=== PATIENT | female | born 1980 | race Caucasian/White ===

== ENCOUNTER 2023-09-24 08:56 | Outpatient (CLI) | payer SELFPAY ==
[2023-09-24 09:12] VITALS: BP 136/74; PULSE 85; RESP 16; TEMP 36.5; O2SAT 96; BMI 34.3
[2023-09-24] MEDS: Iron Sucrose Complex 300 MG in 0.9% Normal Saline (250mL Bag) 250 ML 177 MG IV (09:26)
[2023-09-24] MEDS: 0.9% NaCl Peripheral Flush Adult/Peds IV (09:29)
[2023-09-24] MEDS: 0.9% NaCl IVPB Med Flush (250 mL) 15 ML IV (09:29)
[2023-09-24 11:39] VITALS: BP 140/78; PULSE 84; RESP 16; TEMP 36.4; O2SAT 100
== END 2023-09-24 08:57 | disposition home or self-care (01) ==
PROVIDERS: Referring Provider Nurse Practitioner Women's Health; Visit Provider Nurse Practitioner Women's Health
DX: D64.9 Anemia, unspecified (principal)
CPT/HCPCS: 96365; 96366; J1756; J7050; A4216

== ENCOUNTER 2023-10-01 08:40 | Outpatient (CLI) | payer SELFPAY ==
--- NOTE | 2023-10-01 | EMB_PTH ---
PATIENT: YOAV ACUNA LOC: [facility]#:[id number] AGE/SX: 43/F ROOM: RE10/01/[address]: MARILEE Deshpande : 1980 BED: DIS: 10/01/2023 SPEC #: [id number] RECD: 10/01/23 13:27 STATUS: MARIA E REMarkos #: [id number] MAIRA: 10/01/23 00:[address]: Mónica Irby NP DEPT: SURGICAL PATHOLOGY RECD BY: Lester Morrison ENTERED: 10/01/23 13:27 SP TYPE: ENDOM BX/C MARK DR: Dr. Josette Wilson MD No Primary Care Phys Tissues: Endometrium, NOS Procedures: Surgery Specimen Level IV HEADER OPERATION: Endometrial bleeding PRE-OP DIAGNOSIS: Uterine fibroids TISSUE SUBMITTED: Endometrial lining MICROSCOPIC DIAGNOSIS Endometrium biopsy: Scant fragments of endometrial tissue with weakly proliferative endometrium. Focal eosinophilic and morular metaplasia. See comment. SJ/ 10/02/23 COMMENT The specimen predominantly consists of blood clots. Complex gland formation is noted in the area of eosinophilic and morular metaplasia. Clinical correlation and appropriate follow up are necessary. Repeat biopsy is suggested if clinically indicated. Case has been reviewed in consultation with Dr. Alejandre who concurs with the above diagnosis. IDC:AM MICROSCOPIC DESCRIPTION Slides are reviewed. GROSS DESCRIPTION Received is one container labeled with the patient's name and not further designated. The specimen consists of multiple irregular fragments of hemorrhagic soft tissue that in aggregate measure 5.0 x 3.0 x 0.6 cm. The specimen is totally submitted in two cassettes. [facility] 10/01/23 TC:5 CPT: 00962
[2023-10-01 09:00] VITALS: BP 131/88; PULSE 84; RESP 16; TEMP 36.5; O2SAT 98; BMI 34.7
[2023-10-01 09:11] LABS: Absolute Lymphocyte Count 1.94 X10^3/uL (0.83-4.51); Absolute Neutrophil Count 4.1 X10^3/uL (2.0-7.7); Basophil# 0.05 X10^3/uL; Basophil% 0.8 % (0-1); Eosinophil# 0.17 X10^3/uL; Eosinophils% 2.6 % (0-5); Hematocrit 25.4 % (37-47); Lymphocyte # 1.94 X10^3/ul (0.83-4.51); Lymphocyte % 29.3 % (19-41); Mean Corp Hgb Conc 31.5 g/dL (32-36); Mean Corpuscular Hgb 31.9 pg (27.0-32.0); Mean Corpuscular Volume 101.2 fL (81-99); Mean Platelet Vol. 8.8 fl (6.2-12.0); Monocyte# 0.34 X10^3/uL; Monocyte% 5.1 % (0-10); NRBC Flagged by Analyzer 0 % (0-5); Neutrophil % 61.7 % (47-70); Platelet Count 497 K/mm3 (150-450); RBC Distribution Width CV 16.3 % (11.6-14.6); Red Blood Count 2.51 M/mm3 (4.2-5.4); White Blood Count 6.6 K/mm3 (4.4-11.0)
[2023-10-01] MEDS: Iron Sucrose Complex 300 MG in 0.9% Normal Saline (250mL Bag) 250 ML 177 MG IV (09:21)
[2023-10-01] MEDS: 0.9% NaCl IVPB Med Flush (250 mL) 15 ML IV (09:21)
[2023-10-01 11:22] VITALS: BP 125/82; PULSE 85; RESP 16; TEMP 36.6; O2SAT 98
[2023-10-07 15:52] LABS: HPV Reflexed? NOT INDICATED
== END 2023-10-01 08:41 | disposition home or self-care (01) ==
PROVIDERS: Obstetrics & Gynecology; Referring Provider Nurse Practitioner Women's Health; Visit Provider Nurse Practitioner Women's Health
DX: D64.9 Anemia, unspecified (principal); D25.9 Leiomyoma of uterus, unspecified; N85.8 Other specified noninflammatory disorders of uterus; N93.9 Abnormal uterine and vaginal bleeding, unspecified; Z12.4 Encounter for screening for malignant neoplasm of cervix
CPT/HCPCS: 96365; 96366; 84443; 85025; 88175; 88305; J1756; J7050; A4216; G0145

== ENCOUNTER 2023-10-08 08:06 | Outpatient (CLI) | payer SELFPAY ==
[2023-10-08 08:25] VITALS: BP 150/84; PULSE 85; RESP 16; TEMP 36.3; O2SAT 100; BMI 34.0
[2023-10-08] MEDS: 0.9% NaCl IVPB Med Flush (250 mL) 15 ML IV (08:40)
[2023-10-08] MEDS: 0.9% NaCl Peripheral Flush Adult/Peds IV (08:40)
[2023-10-08] MEDS: Iron Sucrose Complex 300 MG in 0.9% Normal Saline (250mL Bag) 250 ML 177 MG IV (08:40)
[2023-10-08 10:33] VITALS: BP 122/72; PULSE 79
== END 2023-10-08 08:07 | disposition home or self-care (01) ==
PROVIDERS: Referring Provider Nurse Practitioner Women's Health; Visit Provider Nurse Practitioner Women's Health
DX: D64.9 Anemia, unspecified (principal)
CPT/HCPCS: 96365; 96366; J1756; J7050; A4216

== ENCOUNTER 2024-03-01 06:12 | Day surgery (SDC) | payer SELFPAY, OTHER ==
[2023-12-09 10:24] LABS: Absolute Lymphocyte Count 2.43 X10^3/uL (0.83-4.51); Absolute Neutrophil Count 3.5 X10^3/uL (2.0-7.7); Basophil# 0.06 X10^3/uL; Basophil% 0.9 % (0-1); Eosinophil# 0.23 X10^3/uL; Eosinophils% 3.4 % (0-5); Hematocrit 37.7 % (37-47); Hemoglobin 12.3 g/dL (12.0-15.0); Lymphocyte # 2.43 X10^3/ul (0.83-4.51); Lymphocyte % 36.1 % (19-41); Mean Corp Hgb Conc 32.6 g/dL (32-36); Mean Corpuscular Hgb 29.1 pg (27.0-32.0); Mean Corpuscular Volume 89.1 fL (81-99); Monocyte# 0.52 X10^3/uL; Monocyte% 7.7 % (0-10); NRBC Flagged by Analyzer 0 % (0-5); Neutrophil # 3.48 X10^3/uL (2.7-7.7); Neutrophil % 51.8 % (47-70); Platelet Count 376 K/mm3 (150-450); RBC Distribution Width SD 42.5 fl (35.1-43.9); Red Blood Count 4.23 M/mm3 (4.2-5.4); White Blood Count 6.7 K/mm3 (4.4-11.0)
[2024-02-12 09:47] LABS: International Normalized Ratio 1.1; Prothrombin Time (Protime)PT. 13.9 SECONDS (11.7-14.9)
[2024-02-12 09:48] LABS: Partial Thromboplast Time 28.1 Seconds (24.1-36.2)
[2024-02-12 09:59] LABS: Internal QC Validated? YES +Cl - CLEAR BKGD; Pregnancy, Urine Negative Negative
[2024-02-12 10:05] LABS: Magnesium 2.3 mg/dL (1.6-2.6)
--- NOTE | 2024-02-29 08:06 | PCM.HP.BLA ---
History and Physical Date of Admission: 02/29/24 [facility] [address] [place] [address] OFFICE VISIT Date of Service: 01/05/24 MR#: [id number] Acct: [id number] Name: YOAV ACUNA Rep #: [id number] : 1980 Provider: Dr. Josette Wilson MD Age/Sex: 43/F Location: [facility] Status: Signed Intake Vital Signs 10/08/2407:25 01/04/2411:13 01/04/2411:14 Height 5 ft 8 in 5 ft 8 in 5 ft 8 in Weight: 229 lb BMI 34.8 BP 161/101 H Intake Visit Reasons: [facility] Incident Response Engineer Required: No Is patient in pain?: No Allergies No Known Allergies Allergy (Verified 01/05/24 11:14) Medications ?Medication ?Instructions ?Recorded ?Confirmed ?Type megestrol 40 mg tablet 40 mg PO BID #60 tabs 09/24/23 01/05/24 Rx levothyroxine 25 mcg capsule 25 mcg PO DAILY 10/08/23 01/05/24 [facility] History (Updated 01/05/24 @ 11:[address] Josette Wilson MD) Hypothyroid Family History Mother HypertensionFather Hypertension Social History Smoking Status: Never smoker alcohol intake: never substance use type: does not use additional social history: - Heri [facility] Details: YOAV ACUNA is a 43 year old who presents [facility]op [facility] AUB fibroid and anemia. she has been treated for hypothyroidism. she had a normal bp yesterday in the office at her PCP and she will fu with PCP to ensure her bps are WNL. History 1 Elective abortions Hx Para 1 Spontaneous abortions Hx # Term Pregnancies Ectopic pregnancies Hx # Pregnancies Multiple births # of living children Past Pregnancies Del. Date Name GA/Weeks Outcome Route Bth Weight Infant Gen Labor Lgth Anesthesia Del Locatn Provider FOB Unknown Olive Segal Constitutional: Reports system reviewed and no additional complaints, except as documented; Denies chills, fever(s), weight gain or weight loss Cardio Card: Denies chest pain Resp Resp: Denies dyspnea GI GI: Reports as per HPI; Denies abdominal pain, bloating, constipation, cramping, nausea or vomiting : Reports as per HPI; Denies urinary frequency or urinary urgency Exam Const General: cooperative, healthy appearing, comfortable and well developed Orientation: alert HENNV Head: normal to inspection Ears: hearing grossly normal bilaterally and external ears normal Nose: external nose normal and nares normal Face and sinus: normal facial exam Neck Neck: normal visual inspection, no lymphadenopathy and trachea midline Thyroid: thyroid normal Resp Effort & Inspection: normal respiratory effort Auscultation: clear to auscultation bilaterally Cardio Rate: regular rate Rhythm: regular rhythm Heart Sounds: S1 normal and S2 normal GI Inspection: normal to inspection and non-distended Palpation: soft, no hepatosplenomegaly and no guarding External Female Exam: normal external appearance and normal appearance of the urethra Urethra: normal appearance of the urethra Speculum Exam - Vagina: normal appearance of the vagina, normal vaginal discharge and no lesions Speculum Exam - Cervix: normal appearance of the cervix and nontender Bimanual Exam- Vagina & Uterus: No tender Musc Other: gross motor intact no deficits, full bilateral strength Skin General: no rashes or lesions noted Neuro Motor: muscle tone normal throughout Coding Level of Care Code No Charge Diagnoses Hypothyroid E03.9 Uterine fibroid D25.9 Vaginal bleeding N93.9 Assessment and Plan Assessment and Plan (1) Hypothyroid: Status: Acute (2) Uterine fibroid: Status: Acute Comment: nl emb, on megace BID, getting IV iron infusions for anemia. plan lavh bs (3) Vaginal bleeding: Status: Acute Plan After discussing the patient's diagnosis and treatment plan options, patient wishes to proceed with surgical management. I have discussed with the patient the risks, benefits, and alternatives of the procedure which include but are not limited to risks of anesthesia, bleeding, infection, possible damage to bowel, bladder, or surrounding vasculature which could lead to additional surgery to evaluate any complications. Patient agrees to procedure and wishes to proceed. ACOG/uptodate references given for additional information regarding procedure.
[2024-03-01] VITALS (12 sets, daily range): BP systolic 91–167; BP diastolic 62–89; PULSE 67–97; RESP 16–20; TEMP 35.7–36.8; O2SAT 100; BMI 36.5
[2024-03-01] MEDS: Bupivacaine 0.25% 30 ML Vial (06:31)
[2024-03-01] MEDS: Lactated Ringers 1,000 ML 40 ML IV (06:55)
[2024-03-01] MEDS: Magnesium 1 GM over 15 mins IV (07:05)
--- NOTE | 2024-03-01 07:12 | PCM.OPRPT ---
Problems Associated Problem List Diagnoses (1) Uterine fibroid: (2) Hypothyroid: (3) Vaginal bleeding: (4) Acute blood loss anemia: Report of Operation Date of Procedure: 03/01/24 Pre-Operative Diagnosis: see A/P Post-Operative Diagnosis: same Surgery/Procedure Performed:: LAVHBS cystoscopy Description of Surgical Findings:: enlarged fibroid uterus 480 g limited mobility and visibility Surgeon: Josette Wilson Type of Anesthesia: General Specimen's removed: uterus, tubes Drains: mercado Estimated Blood Loss (mL): 200 Fluids Replaced: crystalloid Description of Procedure: Patient received preoperative antibiotics and SCDs were on preoperatively. Patient was taken back to the operating room and placed in the dorsal lithotomy position. General anesthesia was induced and patient was prepped and draped in normal sterile fashion. Uterine manipulator was placed inside the uterus and Mercado catheter placed in the bladder. The umbilicus was grasped with towel clamps and an intraumbilical incision was made after injecting with quarter percent Marcaine and a Veress needle entered into the abdomen confirmed to be intra-abdominal with a low opening pressure. Abdomen was insufflated with CO2 gas and the Veress needle removed and the 5 mm trocar was placed under direct visualization without complication. Right and left lower quadrants were transilluminated and injected with quarter percent Marcaine and 5 mm ports placed under direct visualization. Pelvis was well visualized see operative findings for additional information. Bilateral fallopian tubes were identified and transected with the LigaSure device across the mesosalpinx to the level of the utero-ovarian ligament which was also transected with the LigaSure device. The broad ligament was opened up by transecting the round ligament bilaterally and skeletonizing the uterine vessels bilaterally and creating a bladder flap using the LigaSure device. The uterine arteries were transected bilaterally with good visualization of the bladder and the ureters were seen to be inferior lateral to the operative area. Attention was then paid to the vaginal portion of the procedure and the cervix was grasped with Del clamps and circumferentially injected with dilute vasopressin. A circumferential incision was made and the vaginal mucosa was mobilized off posteriorly and the cul-de-sac entered into sharply and a longneck speculum placed. The anterior cul-de-sac was then identified and entered into sharply. The uterosacral ligaments were clamped cut and suture ligated with 0 Monocryl bilaterally followed by the cardinal ligaments which were clamped cut and suture ligated bilaterally with 0 Monocryl. The uterus serially descended and was removed without difficulty. Pelvic sidewall pedicles were checked and noted to have excellent hemostasis. The vaginal mucosa was reapproximated incorporating the posterior peritoneum. This was reapproximated using 0 Vicryl [id number] sutures. Excellent hemostasis was noted. attention paid to the abdominal portion of the procedure again. The pelvis and cul-de-sac were well visualized and no significant active bleeding noted. Pressure was taken down and the areas visualized and noted of excellent hemostasis. some cauterizaiton was noted moreso on the right pelvic side wall so decision was made to perfom a cystoscopy. The cystoscopy was then performed and bilateral ureteral strong spray was noted and the bladder was noted to have no abnormality or lesions seen. All ports were removed under direct visualization without complication and the abdomen was desufflated of air. The instruments were removed from the abdomen and the vaginal sweep was negative. Port sites on the abdomen were closed with 4-0 Monocryl interrupted sutures and Steri's and windows were applied. She was awoken and taken recovery in stable condition. Grafts/Implants Used: none Procedure Start Time: 09:16 Procedure Stop Time: 12:03 Complications none Admit VTE Documentation VTE Present on Admission: No VTE Mechan Device Prophylaxis: SCD's VTE Pharm Prophylaxis ordered?: Yes Multi Select Codes Urinary/Genital Urinary/Genital CPT Codes: 34496 Cystoscopy and 29595 LAVH+BS/O >250gr Uterus
--- NOTE | 2024-03-01 07:17 | PCM.DC ---
Discharge Instructions Diet Discharge Diet: No restrictions Activity May resume sexual activity in: 6 weeks Weight Bearing Status: Full weight bearing Dressing / Incision Call your doctor if your incision/area has: Continuous Slow Oozing, Sudden Increased Bleeding, Increased Pain/ Swelling, Increased Redness and Foul Smelling Discharge Call your doctor if you observe: Fever of 101 or Higher, Using more than 1 pad per hour, Shortness of breath, Chest pain and Uncontrolled pain Suture Line Care: Avoid Pulling/Pushing and Avoid Pinching/Bending Remove Dressing in: 1 week (if present) Cleanse incision/area with: Soap & Water and Keep Dressing Clean & Dry Follow Up Care Please Follow Up With: Josette Wilson MD When: Call to make an appointment with your doctor for a postop visit in 2 and 6 weeks. Test Results: Test results from this visit will be discussed in further detail at your follow-up appointment, if applicable. Discharge Plan Admission Attending Provider: Josette Wilson Primary Care Provider: Jeanine Bronson NP Instructions Print Language: Rwandan Discharge Orders/Prescriptions Prescriptions: New oxycodone-acetaminophen [Percocet] 5-325 mg tablet 1 tab PO Q6H PRN (Reason: pain) 7 Days Qty: 10 0RF naproxen 500 mg tablet 500 mg PO BID PRN PRN (Reason: Pain) Qty: 30 1RF No Action megestrol 40 mg tablet 40 mg PO BID Qty: 60 6RF levothyroxine 100 mcg tablet 112 mcg PO DAILY hydrochlorothiazide 25 mg tablet 25 mg PO DAILY Referrals / Follow Up: Jeanine Bronson NP, ENERGY CONSERVATION REPRESENTATIVE-C [Primary Care Provider] - Disposition Disposition (needs filled in before D/C Order can be placed): Home, Self Care
[2024-03-01] MEDS: dexAMETHasone 4 MG/ML Vial 8 MG IV (07:19)
[2024-03-01] MEDS: Enoxaparin 40 MG/0.4 ML Syringe SC (07:19)
[2024-03-01] MEDS: Scopolamine 1mg/72hr Patch 1 PATCH TD (07:19)
[2024-03-01] MEDS: Phenazopyridine 95 MG Tablet 190 MG PO (07:20)
[2024-03-01] MEDS: Celecoxib 200 MG Capsule 400 MG PO (07:21)
[2024-03-01] MEDS: Acetaminophen 500 MG Tablet 1000 MG PO (07:21)
[2024-03-01] MEDS: Gabapentin 600 MG Tablet PO (07:22)
[2024-03-01 07:44] LABS: Internal QC Validated? YES +Cl - CLEAR BKGD; Pregnancy, Serum, hCG Quali. NEGATIVE Negative
--- NOTE | 2024-03-01 07:51 | PRE.ANES_ITS ---
ASA Classification* ASA Classification ASA Classification: 2 Assessment & Plan Anesthesia* Anesthesia Assessment Anesthesia Assessment: Discussed sedation and/or anesthesia options, risks, benefits, and alternatives with patient/parents/legal guardian/POA. Questions invited. The patient/parents/legal guardian/POA seems to understand and agrees to proceed with anesthesia plan. Reviewed the physical assessment, medical history, allergy history and patient home medications list prior to surgery/procedure/anesthetic and documented any changes. Performed airway and anesthesia risk assessments. Anesthesia Type Anesthesia Type: General (see written pre anesthesia record for full assessment ) Anesthesia Focused Assessment* Temperature: 98.3 F Pulse Rate: 97 Blood Pressure: 167/84 Respiratory Rate: 18 Pulse Ox: 100 Airway Assessment Mouth opens: >3 cm Mallampati Score: II Focused Labs Anesthesia Preop lab: CBC WBC 6.7 K/mm3 (4.4-11.0) 12/09/23 08:57 RBC 4.23 M/mm3 (4.2-5.4) 12/09/23 08:57 Hgb 12.3 g/dL (12.0-15.0) 12/09/23 08:57 Hct 37.7 % (37-47) 12/09/23 08:57 Plt Count 376 K/mm3 (150-450) 12/09/23 08:57 CHEMISTRY Magnesium 2.3 mg/dL (1.6-2.6) 02/12/24 09:17 TSH 6.820 uIU/mL (0.358-3.740) H 02/12/24 09:17 COAG PT 13.9 SECONDS (11.7-14.9) 02/12/24 09:17 Urine Test Negative Negative 02/12/24 09:17 Pre-Assessment Diagnosis/Proposed Procedure Planned Operative Procedure(s): LAP ASSISTED VAGINAL HYSTERECTOMY BILAT SALPINGECTOMY Anesthesia History Anesthesia History - supervisor electronics testing: Anesthesia History - supervisor electronics testing Hx Hospitalization No 02/22/24 08:59 Any Problems With Anesthesia No 02/22/24 08:59 Cholinesterase deficiency No 02/22/24 08:59 You/Your Family Experience No 02/22/24 08:59 fever (hyperthermia) with Relationship Recent Exposure to Contagious No 03/01/24 06:45 Disease Does patient have nerve No 02/22/24 08:59 stimulator Patient instructed to have device shut off --Does patient have Pacemaker No 03/01/24 06:45 or ICD? When Was Last Pacemaker Check QUESTION #4 FULL TEXT: You/Your Family Experience fever (hyperthermia) with Anesthesia Last Oral Intake Last Oral intake: Last Oral Intake NPO since 04:30 03/01/24 06:45 Meds taken in AM with sips of Yes 03/01/24 06:45 water? Meds patient instructed to levothyroxine 03/01/24 06:45 take am of surgery PONV PONV - supervisor electronics testing: PONV - supervisor electronics testing Female Yes 02/22/24 08:59 HX of Motion Sickness No 02/22/24 08:59 HX of N/V After Surgery No 02/22/24 08:59 Non-Smoker Yes 02/22/24 08:59 Duration of Surgery greater Yes 02/22/24 08:59 than 60 minutes Number of Risk Factors 3 02/22/24 08:59 PONV Score Moderate Risk 02/22/24 08:59 Height & Weight Height & Weight: Anesthesia: Height & Weight Height 5 ft 7 in 03/01/24 06:45 Weight: 105.7 kg 03/01/24 06:45 Body Mass Index (BMI) 36.5 03/01/24 06:45 Respiratory Assessment Respiratory Assessment - supervisor electronics testing: Respiratory Tract Infection Hx - supervisor electronics testing Hx Respiratory Tract Infection No 02/22/24 08:59 STOP Sleep Apnea STOP Sleep Apnea - supervisor electronics testing: STOP Sleep Apnea - supervisor electronics testing Hx Hypertension Yes: JUST STARTED ON HCTZ 02/22/24 08:59 Hx Sleep Apnea No 02/22/24 08:59 CPAP BIPAP Do you snore loudly (louder Yes 02/22/24 08:59 than talking or can be heard Do you often feel tired/ No 02/22/24 08:59 fatigued/ sleepy during daytime? Has anyone observed you stop No 02/22/24 08:59 breathing during sleep? STOP Results Positive 02/22/24 08:59 QUESTION #5 FULL TEXT : Do you snore loudly (louder than talking or can be heard through closed doors)? Tobacco Use History Tobacco Use History - supervisor electronics testing: Tobacco Use History - supervisor electronics testing Tobacco Use Smoking Status Never smoker 02/22/24 08:59 Hx Tobacco Use No 02/22/24 08:59 Years Smoking Packs Smoked per Day Smoking Cessation Date was within the last 15 years Hx Smoking Cessation Date Hx Smoking Cessation Counseling Hematologic Medial History Hematologic Hx - supervisor electronics testing: Hematologic Medical Hx - senior qa engineer Hx of Blood Transfusion Yes 02/22/24 08:59 Hx of Transfusion in last 3 No 02/22/24 08:59 Months Date of Last Transfusion (if within last 3 months) Ever experience any problems No 02/22/24 08:59 with transfusion(s)? Specify any problems Hx of Preganancy in last 3 No 02/22/24 08:59 Months Nurse Filling Out Transfusion DSCHRIBER 02/22/24 08:59 & Questions: Date: 02/22/24 02/22/24 08:59 Time: 08:59 02/22/24 08:59 Patient unable to answer at this time (ie. confused, unrespo /Reproduction History /Reproductive History - supervisor electronics testing: /Reproductive Hx- supervisor electronics testing Hx Now No 02/22/24 08:59 Gestational Age (in weeks): EDC: Hx Hx Para Hx Section SAB No 02/22/24 08:59 Active Medications Active Medications: Current Medications Generic Name Dose Route Start Last Admin Trade Name Freq PRN Reason Stop Dose Admin Acetaminophen 1,000 mg 03/01/24 08:15 03/01/24 07:21 Acetaminophen 500 Mg Tablet PO 03/01/24 08:16 1,000 mg PREOP ONE Administration Celecoxib 400 mg 03/01/24 08:15 03/01/24 07:21 Celecoxib 200 Mg Capsule PO 03/01/24 08:16 400 mg X1 ONE Administration Dexamethasone Sodium Phosphate 8 mg 03/01/24 08:15 03/01/24 07:19 Dexamethasone 4 Mg/Ml Vial IV 03/01/24 08:16 8 mg X1 ONE Administration Enoxaparin Sodium 40 mg 03/01/24 08:15 03/01/24 07:19 Enoxaparin 40 Mg/0.4 Ml Syringe SC 03/01/24 08:16 40 mg X1 ONE Administration Gabapentin 600 mg 03/01/24 08:15 03/01/24 07:22 Gabapentin 600 Mg Tablet PO 03/01/24 08:16 600 mg PREOP ONE Administration Lactated Ringer's 1,000 mls @ 40 mls/hr 03/01/24 08:15 03/01/24 06:55 IV 40 mls/hr .Q25H JORDANA Administration Cefazolin Sodium 2 gm/ Sodium 110 mls @ 150 mls/hr 03/01/24 08:15 Chloride IV 03/01/24 08:58 PREOP ONE Magnesium Sulfate 1 gm/ 102 mls @ 408 mls/hr 03/01/24 08:15 03/01/24 07:05 Dextrose IV 03/01/24 08:29 408 mls/hr X1 ONE Administration Insulin Human Lispro 0 unit 03/01/24 08:15 Insulin Lispro 100 Unit/Ml Insuln.Pen SC Q4H PRN PRN BG >/= 180, SEE PROTOCOL Protocol Ondansetron HCl 4 mg 03/01/24 08:15 Ondansetron 4 Mg/2 Ml Vial IV 03/01/24 08:16 X1 ONE Phenazopyridine HCl 190 mg 03/01/24 08:15 03/01/24 07:20 Phenazopyridine 95 Mg Tablet PO 03/01/24 08:16 190 mg X1 ONE Administration Scopolamine HBr 1 patch 03/01/24 08:15 03/01/24 07:19 Scopolamine 1mg/72hr Patch TD 03/01/24 08:16 1 mg X1 ONE Administration PFSH Medical History Hypertension Anxiety Low iron Anemia Migraine headache Heartburn Shortness of breath on exertion Non-smoker Hypothyroid Home Medications ?Medication ?Instructions ?Recorded ?Last Taken ?Type megestrol 40 mg tablet 40 mg PO BID #60 tabs 09/24/23 Unknown Rx hydrochlorothiazide 25 mg tablet 25 mg PO DAILY 02/22/24 Unknown History levothyroxine 100 mcg tablet 112 mcg PO DAILY 02/22/24 03/01/24 04:30 History naproxen 500 mg tablet 500 mg PO BID PRN PRN Pain #30 tabs 03/01/24 Unknown Rx oxycodone-acetaminophen 5 mg-325 1 tab PO Q6H PRN pain 7 days #10 03/01/24 Unknown Rx mg tablet (Percocet) tabs Allergy/AdvReac Type Severity Reaction Status Date / Time No Known Allergies Allergy Verified 09/03/24 07:12 Family History Mother Hypertension Father Hypertension Surgical History S/P laparoscopic assisted vaginal hysterectomy (LAVH) No history of previous surgery Social History Smoking Status: Never smoker alcohol intake: never substance use type: does not use additional social history: - Heri Review of Systems (Anesthesia) ROS Narrative System reviewed and no additional complaints, except as documented.
--- NOTE | 2024-03-01 08:15 | HYST_PTH ---
PATIENT: YOAV ACUNA LOC: [facility] [place] U#:[id number] AGE/SX: 43/F ROOM: RE03/01/[address]: Dr. Josette Wilson MD : 1980 BED: DIS: 03/01/2024 SPEC #: [id number] RECD: 03/01/24 12:15 STATUS: MARIA E VIKTOR #: [id number] MAIRA: 03/01/24 08:[address]: Josette Wilson DEPT: SURGICAL PATHOLOGY RECD BY: Juana Huerta ENTERED: 03/01/24 13:03 SP TYPE: HYSTERECT OTHR DR: Jeanine Bronson, STACEY-Kwame Tissues: Uterus, NOS Procedures: Surgery Specimen Level V HEADER OPERATION: Hysterectomy, LAVH, bilateral salpingectomy PRE-OP DIAGNOSIS: Uterine fibroid, vaginal bleeding TISSUE SUBMITTED: Uterus and bilateral fallopian tubes MICROSCOPIC DIAGNOSIS Uterus and bilateral fallopian tubes, hysterectomy and bilateral salpingectomy: Endometrial adenocarcinoma, endometrioid type, arising in adenomyosis/adenomyoma. See cancer summary in the comment section. MIKHAIL/ 03/09/2024 COMMENT The specimen is sent to [facility] for expert opinion and also sent to [facility] for consultation, reviewed by Dr. Cox and the above diagnosis is rendered. The complete report is viewable in the patient's EMR. ENDOMETRIUM CARCINOMA SUMMARY: Specimen - Uterus and bilateral fallopian tubes Procedure - Total hysterectomy and bilateral salpingectomy Hysterectomy type- Vaginal Specimen integrity- Morcellated Tumor site - endometrium, lower uterine segment and adenomyoma. Tumor size - Exact size cannot be determined, tumor extensively involved adenomyosis/adenomyoma, which measures 7.0 cm in greatest dimension. Histologic type - Endometrial carcinoma, endometrioid type Histologic grade - Grade 1 Myometrial invasion - cannot be assessed as most of the tumor in the myometrium present involving adenomyosis/adenomyoma. Adenomyosis: Present and involved by carcinoma Uterine serosal involvement: Not identified Lower uterine segment involvement: Present, myoinvasive. Depth of invasion in the lower uterine segment - 0.2 cm. Lower uterine segment wall thickness - 1.2 cm Cervical stromal involvement: Not identified Other tissue/organ involvment: Right fallopian tube and left fallopian tube (not involved) Peritoneal/ascitic fluid - Not submitted/unknown Margins - Margins are free of tumor Parametrial/paracervical margins: Grossly not involved by tumor, cannot be assessed clearly as specimen received in multiple fragments Lymph-Vascular invasion - Not identified Regional lymph node: Not submitted/found Additional pathologic findings - Endometrium with focal changes consistent with exogenous hormone effects Bilateral fallopian tube - no pathologic diagnosis. Cervix - chronic cystic cervicitis. Ancillary studies - Please see report from [facility] Clinical history - Please make reference to previous specimen [id number] endometrium biopsy with diagnosis of scant fragments of endometrial tissue with weakly proliferative endometrium and focal eosinophilic and morular metaplasia and commented that area of complex gland formation is noted in the area of eosinophilic and morular metaplasia. PATHOLOGIC STAGE: pT1a pNx pMx The above summary is in compliance with [employer] [place] [employer] (CAP) Cancer Protocols Checklist and [place] [employer] Committee of Cancer (AJCC), Staging Manual, 7th Ed. Case has been reviewed in consultation with Dr. Alejandre who concurs with the above diagnosis. IDC:AM MICROSCOPIC DESCRIPTION Slides are reviewed. GROSS DESCRIPTION Received in fixative is one container labeled with the patient's name and designated uterus, fallopian tubes. The specimen consists of a hysterectomy specimen consisting of uterus with cervix in multiple pieces. One of the fallopian tubes is attached to the largest piece of uterus. A detached fallopian tube is also present in the container. The uterus with cervix in multiple pieces weighs 460 gm and measures in aggregate 20.0 x 16.0 x 7.0 cm. The largest piece of the uterus measures 10.0 x 6.0 x 9.0cm. The serosal surface is smooth. Two detached pieces are consistent with cervix. The ectocervical mucosa is unremarkable. The endocervical canal measures 3.0 cm in length and the endocervical mucosa is hanna glistening and unremarkable. Section of the cervix reveal a few cysts filled with mucoid material. The largest piece of the uterus also shows endometrial cavity measuring 3.0cm in length and 2.5cm in width. The endometrium is hanna glistening without any mass lesions and measures 0.1 cm in thickness. Sections of the uterine wall reveal an ill-defined nodular mass with trabeculated cut surfaces, suspicious for adenomyosis. This mass measures 7.0cm in greatest dimension. Sections of the few of the detached pieces also reveal trabeculated cut surfaces. Exact size of this mass cannot be determined due to fragment nature of the specimen. Uterine wall measures up to 3.0cm in thickness. The attached fallopian tube measures 5.5cm in length and 0.6cm in diameter. Fimbrial end is identified. Sections reveal unremarkable cut surfaces. Detached fallopian tube measures 6.0cm in length and 0.6cm in diameter. Fimbrial end is identified. Sections reveal unremarkable cut surfaces. The fallopian tube cannot be oriented as right or left due to fragmented nature of the specimen. [employer] sections are submitted in twenty-four cassettes as follows: 1& 2 - cervix including lower uterine segment, 3-6- uterine wall with overlying endometrium including underlying mass, 7&8- more section uterine wall including mass, 9- uninvolved portion of uterine wall, 10- attached fallopian tube, 11- detached fallopian tube. SJ: 03/01/2024 More sections are submitted as follows: 12-18- rest of cervix including lower uterine segment, 19&20- detached fragments of tissue, possible endometrial tissue, 21-24- more section of myometrial wall. : 03/02/2024 TC:0 CPT: 69615 ADDENDUM ADDENDUM ADDENDUM ADDENDUM ADDENDUM ADDENDUM ADDENDUM ADDENDUM ADDENDUM ADDENDUM ADDENDUM ADDENDUM ADDENDUM ADDENDUM ADDENDUM ADDENDUM ADDENDUM ADDENDUM ADDENDUM ADDENDUM ADDENDUM ADDENDUM ADDENDUM ADDENDUM ADDENDUM ADDENDUM ADDENDUM ADDENDUM ADDENDUM ADDENDUM ADDENDUM ADDENDUM ADDENDUM ADDENDUM ADDENDUM ADDENDUM ADDENDUM ADDENDUM ADDENDUM ADDENDUM ADDENDUM ADDENDUM ADDENDUM ADDENDUM ADDENDUM ADDENDUM ADDENDUM ADDENDUM ADDENDUM ADDENDUM ADDENDUM 03/15/2024 09:53 ADDENDUM 03/15/2024 09:53 ADDENDUM 03/15/2024 09:53 ADDENDUM 03/15/2024 09:53 ADDENDUM 03/15/2024 09:53 This addendum is added to incorporate an outside pathology consultation report. The case was examined at [facility] ([id number]) and the following diagnosis was rendered. SOLID TUMOR IMMUNOHISTOCHEMICAL ANAYLSIS INTERPRETATION: * Endometrial adenocarcinoma, endometroid type, arising in adenomyosis/adenomyoma Block 3 PAX8: Weakly positive ER: Weakly positive CD10: Positive P63: Negative CDX2: Weakly positive Beta-Catenin: Negative [id number]: Negative Ki67: Increased CK7: Positive CK20: Negative Case is to be sent to [facility] for consultation. This addendum is added to incorporate an outside pathology consultation report. The case was examined at [facility] ([id number]) and the following diagnosis was rendered. GYNECOLOGIC PATHOLOGY CONSULTATION SERVICE Uterus, cervix, and bilateral fallopian tubes * Endometrial endometroid adenocarcinoma (FIGO Grade 1) with focal squamous differentiation * Myoinvason present * Lower uterine segment involved by carcinoma * Background inactive decidualized endometrium consistent with exogenous hormone treatment effect * Cervical stroma negative for carcinoma Block 3: PAX8: Weakly positive CK7: Positive CK20: Negative ER: Weakly positive P16: Patchy (non-diffuse) expression CDX2: Focally positive Please see complete above mentioned consultation report in EMR
[2024-03-01] MEDS: Cefazolin 2 GM in 0.9% Normal Saline (100mL Bag) 100 ML IV (08:42)
[2024-03-01] MEDS: Vasopressin 20 UNITS/ML Vial (11:46)
--- NOTE | 2024-03-01 12:19 | PCM.POST.ANE ---
Anesthesia: Postop Eval I Current Vital Signs Temperature: 96.3 F Pulse Rate: 69 Blood Pressure: 102/62 Respiratory Rate: 18 Pulse Ox: 100 Assessment Airway patent: Yes Spontaneous unlabored respirations: Yes nausea: No Vomiting: No Anesthesia Complication: No Fluid Hydration Crystalloid volume administer (ml): 1,800 Total IV fluid infused: 1,800 Progress Note Anesthesia document: Postop Eval 1 completed: Yes
[2024-03-01] MEDS: Ketorolac 30 MG/ML Syringe IV (12:39)
--- NOTE | 2024-03-01 13:42 | POSTOPAN2_ITS ---
Anesthesia Postop Eval I Sum Postop Eval Completion status Anesthesia document: Postop Eval 1 completed: Yes Anesthesia Postop Eval I Summary Anesthesia Postop Eval I Summary: Anesthesia Postop Eval I: Assessment Summary Airway patent Yes 03/01/24 12:19 REINSTATEMENT CLERK.CSIR Spontaneous unlabored Yes 03/01/24 12:19 REINSTATEMENT CLERK.CSIR respirations Mental status nausea No 03/01/24 12:19 REINSTATEMENT CLERK.CSIR Vomiting No 03/01/24 12:19 REINSTATEMENT CLERK.CSIR Anesthesia Postop Eval I: Fluid Summary Crystalloid volume administer 1,800 03/01/24 12:19 REINSTATEMENT CLERK.CSIR (ml) Colloids volume administered ( ml) Blood Product volume administered (ml) Total IV fluid infused 1,800 03/01/24 12:19 REINSTATEMENT CLERK.CSIR Anesthesia Postop Eval I: Summary Notes Anesthesia Complication No 03/01/24 12:19 REINSTATEMENT CLERK.CSIR Anesthesia Complication Comment: Post-operative progress note Anesthesia: Postop Eval II Evaluation Mental status: Awake Pain Level: 0 nausea: No Vomiting: No
--- NOTE | 2024-03-01 13:42 | PCM.POSTANE2 ---
Anesthesia Postop Eval I Sum Postop Eval Completion status Anesthesia document: Postop Eval 1 completed: Yes Anesthesia Postop Eval I Summary Anesthesia Postop Eval I Summary: Anesthesia Postop Eval I: Assessment Summary Airway patent Yes 03/01/24 12:19 BEHAVIORAL HEALTH COUNSELOR.CSIR Spontaneous unlabored Yes 03/01/24 12:19 BEHAVIORAL HEALTH COUNSELOR.CSIR respirations Mental status nausea No 03/01/24 12:19 BEHAVIORAL HEALTH COUNSELOR.CSIR Vomiting No 03/01/24 12:19 BEHAVIORAL HEALTH COUNSELOR.CSIR Anesthesia Postop Eval I: Fluid Summary Crystalloid volume administer 1,800 03/01/24 12:19 BEHAVIORAL HEALTH COUNSELOR.CSIR (ml) Colloids volume administered ( ml) Blood Product volume administered (ml) Total IV fluid infused 1,800 03/01/24 12:19 BEHAVIORAL HEALTH COUNSELOR.CSIR Anesthesia Postop Eval I: Summary Notes Anesthesia Complication No 03/01/24 12:19 BEHAVIORAL HEALTH COUNSELOR.CSIR Anesthesia Complication Comment: Post-operative progress note Anesthesia: Postop Eval II Evaluation Mental status: Awake Pain Level: 0 nausea: No Vomiting: No
[2024-03-01 15:06] LABS: Hematocrit 37.1 % (37-47); Hemoglobin 12.5 g/dL (12.0-15.0); Mean Corp Hgb Conc 33.7 g/dL (32-36); Mean Corpuscular Hgb 29.7 pg (27.0-32.0); Mean Corpuscular Volume 88.1 fL (81-99); Mean Platelet Vol. 9.8 fl (6.2-12.0); Platelet Count 358 K/mm3 (150-450); RBC Distribution Width CV 13.8 % (11.6-14.6); RBC Distribution Width SD 44.2 fl (35.1-43.9); Red Blood Count 4.21 M/mm3 (4.2-5.4); White Blood Count 14.7 K/mm3 (4.4-11.0)
== END 2024-03-01 16:11 | disposition home or self-care (01) ==
LOC: SDC 06:14 → AC 06:14
PROVIDERS: Anesthesiology; PCP Nurse Practitioner Family; Referring Provider Obstetrics & Gynecology; Visit Provider Obstetrics & Gynecology
PROC: 0UT9FZZ Resection of Uterus, Via Natural or Artificial Opening With Percutaneous Endoscopic Assistance (ICD-10-PCS; CPT 58554; principal; 2024-03-01 08:00)
DX: N93.9 Abnormal uterine and vaginal bleeding, unspecified (principal); C54.1 Malignant neoplasm of endometrium; D25.9 Leiomyoma of uterus, unspecified; N80.03 Adenomyosis of the uterus; D26.1 Other benign neoplasm of corpus uteri; E03.9 Hypothyroidism, unspecified; I10 Essential (primary) hypertension; Z79.899 Other long term (current) drug therapy
CPT/HCPCS: 58554; 00840; 36415; 81025; 83735; 84443; 84703; 85018; 85025; 85027; 85610; 85730; 86850; 86900; 86901; 88307; J7120; J2405; J3475

== ENCOUNTER → 2024-10-05 | Outpatient (CLI) | payer SELFPAY ==
--- NOTE | 2024-10-05 12:57 | US_ITS ---
PROCEDURE: THYROID (USTHY), 10/05/2024 REASON FOR EXAM: THYROMEGALY TECHNIQUE: Grayscale and color Doppler imaging of the thyroid was performed. COMPARISON: None FINDINGS: Right lobe measures 4.2 x 1.7 x 1.8 cm. Heterogeneous background echotexture with diffuse ill-defined hypoechoic and hyperechoic nodular areas. No abnormal vascularity. Nodules as below: *7 x 7 x 5 mm, solid, echogenic, TI-RADS 3. Left lobe measures 4.5 x 1.6 x 1.4 cm. Heterogeneous background echotexture with diffuse ill-defined hypoechoic and hyperechoic nodular areas areas. No abnormal vascularity. Isthmus measures 3 mm in thickness. US/Thyroid IMPRESSION: 1. Assessment is TI-RADS 3. No nodules currently meet criteria for FNA or follo w-up. 2. Appearance suggestive of Adele thyroiditis. Correlate with laboratory e valuation. Management recommendations for TI-RADS 3 findings: FNA if = 2.5 cm; Follow if = 1.5 cm at 1, 3, and 5 years. Recommendations per ACR Thyroid Imaging, Reporting and Data System (TI-RADS): Jodee lopez Paper of the ACR TI-RADS Committee, 2017 ([email or web address]) Reading Location: [id number]
--- NOTE | 2024-10-05 13:15 | BI_ITS ---
EXAM: SCRN MAMM (CAD)W/MINA BILAT 10/05/2024 CLINICAL HISTORY: F, Age 44 y/o , SCREENING MAMMOGRAM TECHNIQUE: Bilateral screening digital breast tomosynthesis with 2D and 3D images. Computer aided detection. COMPARISON: Prior exam(s) dated 03/13/2016. FINDINGS: TISSUE DENSITY: The breast tissue is composed of scattered area of fibroglandular density. Bilateral Breast Mammographic Findings: No significant masses, calcifications or other abnormalities are identified. BI/SCRN MAMM (CAD)W/MINA BILAT IMPRESSION: Right Breast: BIRADS 1 NEGATIVE. Left Breast: BIRADS 1 NEGATIVE. OVERALL FINAL ASSESSMENT: BIRADS 1 NEGATIVE. RECOMMENDATION: Routine annual follow-up in 1 Year A letter with findings and recommendations will be mailed to the patient. Reading Location: [facility]
== END | disposition home or self-care (01) ==
PROVIDERS: PCP Nurse Practitioner Family; Referring Provider Obstetrics & Gynecology; Visit Provider Obstetrics & Gynecology
DX: Z12.31 Encounter for screening mammogram for malignant neoplasm of breast (principal); E01.0 Iodine-deficiency related diffuse (endemic) goiter
CPT/HCPCS: 76536; 77063; 77067